=== PATIENT | male | born 1965 | race Caucasian/White ===

== ENCOUNTER → 2016-06-18 | Outpatient (CLI) | payer OTHER | LOC: RAD 07:56 | PROVIDERS: ATTEND Physician Assistant | DX: M79.641 Pain in right hand (principal); M79.642 Pain in left hand; M25.562 Pain in left knee ==

== ENCOUNTER → 2016-07-02 | Outpatient (CLI) | payer OTHER | LOC: RAD 07:55 | PROVIDERS: ATTEND Orthopaedic Surgery | DX: M25.562 Pain in left knee (principal) ==

== ENCOUNTER 2016-11-05 08:16 | Day surgery (SDC) | payer OTHER ==
[2016-10-29 09:21] LABS: ABSOLUTE BASOPHILS # (AUTO) 0.1 10^3/uL (0.0-0.2); ABSOLUTE EOSINOPHILS # (AUTO) 0.2 10^3/uL (0.0-0.6); ABSOLUTE LYMPHOCYTES (AUTO) 1.7 10^3/uL (0.5-4.7); ABSOLUTE MONOCYTES (AUTO) 0.6 10^3/uL (0.1-1.4); ABSOLUTE NEUT (AUTO) 3.1 10^3/uL (1.7-8.2); EOSINOPHILS % (AUTO) 3.9 % (0-6); HEMATOCRIT 40.5 % (37.9-51.0); HEMOGLOBIN 13.6 g/dL (13.5-17.0); HGB HCT DIFFERENCE 0.3; LYMPHOCYTES % (AUTO) 29.9 % (13-45); MEAN CORPUSCULAR HEMOGLOBIN 29.6 pg (27.0-33.4); MEAN CORPUSCULAR HGB CONC 33.6 g/dL (32.0-36.0); MEAN CORPUSCULAR VOLUME 88 fl (80-97); MONOCYTES % (AUTO) 11.1 % (3-13); SEGMENTED NEUTROPHILS % (AUTO) 54.1 % (42-78); WHITE BLOOD COUNT 5.8 10^3/uL (4.0-10.5)
[2016-10-29 09:27] LABS: APPEARANCE,URINE CLEAR; BILIRUBIN,URINE NEGATIVE (NEGATIVE); GLUCOSE, URINE NEGATIVE (NEGATIVE); KETONES,URINE NEGATIVE (NEGATIVE); LEUKOCYTE ESTERASE,URINE NEGATIVE (NEGATIVE); NITRITE,URINE NEGATIVE (NEGATIVE); PROTEIN,URINE NEGATIVE (NEGATIVE); URINE SPECIFIC GRAVITY 1.016; UROBILINOGEN,URINE NEGATIVE mg/dL (<2.0)
[2016-10-29 09:47] LABS: ANION GAP 11 (5-19); BLOOD UREA NITROGEN 18 mg/dL (7-20); CALCIUM 9.3 mg/dL (8.4-10.2); CARBON DIOXIDE 24 mmol/L (22-30); CHLORIDE 107 mmol/L (98-107); GLUCOSE 111 mg/dL (75-110); POTASSIUM 4.7 mmol/L (3.6-5.0); SODIUM 141.8 mmol/L (137-145)
--- NOTE | 2016-10-29 10:01 | RADIOLOGY REPORT (SQ) ---
EXAM DESCRIPTION: CHEST PA/LATERAL COMPLETED DATE/TIME: 10/29/2016 9:52 am REASON FOR STUDY: PRE OP COMPARISON: 2014 EXAM PARAMETERS: NUMBER OF VIEWS: two views TECHNIQUE: Digital Frontal and Lateral radiographic views of the chest acquired. RADIATION DOSE: NA LIMITATIONS: none FINDINGS: LUNGS AND PLEURA: No opacities, masses or pneumothorax. No pleural effusion. MEDIASTINUM AND HILAR STRUCTURES: No masses or contour abnormalities. HEART AND VASCULAR STRUCTURES: Heart normal size. No evidence for failure. BONES: No acute findings. HARDWARE: None in the chest. OTHER: No other significant finding. IMPRESSION: NO SIGNIFICANT RADIOGRAPHIC FINDING IN THE CHEST. TECHNICAL DOCUMENTATION: JOB ID: [id number] [employer]- All Rights Reserved
--- NOTE | 2016-10-29 13:08 | EKG REPORT ---
SEVERITY:- ABNORMAL ECG - SINUS RHYTHM NONSPECIFIC INTRAVENTRICULAR CONDUCTION DELAY NONSPECIFIC ST-T CHANGES- INFERIOR LEADS : Confirmed by: Wilner Flores MD 29-Oct-2016 13:07:18
[~2016-11-05 08:16] MED LIST: CEFAZOLIN 2 GM/D5W RTU 2 GM/50 ML RTUPB IV PRN; LACTATED RINGERS 1000 ML IV PRN; LIDOCAINE 0.5% INJ-PF (5 MG/ML) 50 ML SDV SUBCUT PRN
[2016-11-05] MEDS ORDERED: BUPIVACAINE HCL 0.25% /EPINEPHRINE INJ/PF 30 ML SDV ONE (09:11)
[2016-11-05] MEDS ORDERED: FAMOTIDINE INJ/PF 20 MG/2 ML SDV IV ONE (10:07)
[2016-11-05] MEDS ORDERED: RINGERS SOLUTION,LACTATED 1,000 ML IV PRN (10:14)
[2016-11-05] MEDS ORDERED: MIDAZOLAM 2 MG/2 ML INJ ONE (10:43)
[2016-11-05] MEDS ORDERED: EPHEDRINE SULFATE INJ 50 MG/1 ML AMPULE ONE (10:43)
[2016-11-05] MEDS ORDERED: FENTANYL CITRATE INJ/PF 250 MCG/5 ML AMPULE ONE (10:43)
[2016-11-05] MEDS ORDERED: PROPOFOL INJ 200 MG/20 ML VIAL IV ONE (10:44)
[2016-11-05] MEDS ORDERED: IBUPROFEN INJ 800 MG/8 ML VIAL IV ONE (10:44)
[2016-11-05] MEDS ORDERED: RINGERS SOLUTION,LACTATED 1,000 ML IV ONE (11:00)
[2016-11-05] MEDS ORDERED: MORPHINE SULFATE 10 MG/ML INJ IV PRN (11:36)
[2016-11-05] MEDS ORDERED: FENTANYL CITRATE INJ/PF 100 MCG/2 ML AMPUL IV PRN ×3 (11:36)
[2016-11-05] MEDS ORDERED: MEPERIDINE HCL/PF INJ 25 MG/1 ML DISP.SYRIN IV PRN (11:36)
[2016-11-05] MEDS ORDERED: PROMETHAZINE HCL INJ 25 MG/1 ML VIAL IV PRN ×2 (11:36)
[2016-11-05] MEDS ORDERED: DIPHENHYDRAMINE HCL 50 MG/ML VIAL IV PRN (11:36)
[2016-11-05] MEDS ORDERED: OXYCODONE-ACETAMINOPHEN 5-325 MG TABLET PO PRN ×2 (11:36)
--- NOTE | 2016-11-05 11:58 | Operative Report ---
Operative Report DATE OF SURGERY: 11/05/16 PREOPERATIVE DIAGNOSIS: Left patellar tendinitis OPERATION: Left patellar tendon debridement SURGEON: WALESKA JIMENEZ ANESTHESIA: GA TISSUE REMOVED OR ALTERED: Tissue to pathology, cultures to microbiology ESTIMATED BLOOD LOSS: 25 PROCEDURE: Supine and abdomen table the left lower extremities prepped and draped a sterile fashion. Limb was elevated for exsanguination tourniquet inflated 280 torr. A longitudinal incision was made over the patellar tendon and the tibial tubercle. Blunt dissection was used to elevate the soft tissue off the anterior surface of the patella tendon and its medial and lateral margins are identified. A 10 blade was used to perforate this retinaculum at the margins of the patella tendon. The tissue underneath the patella tendon was then debrided using combination of a knife, blunt dissection, and rongeur. The tissue includes inflammatory tissue, fibrous tissue, and bone. The tendon is palpated and is no further inflammatory tissue that can be appreciated. The tourniquet was deflated. Hemostasis obtained with electrocautery. The wound is irrigated with bulb lavage. Is closed with interrupted Vicryl followed by nylon. A sterile compressive dressing was applied and the patient's return to the PACU in satisfactory condition.
[2016-11-05] MEDS ORDERED: ONDANSETRON 4 MG TAB.RAPDIS SL PRN (12:40)
[2016-11-05] MEDS ORDERED: OXYCODONE HCL IR 5 MG TABLET PO PRN (12:40)
[2016-11-05 14:18] VITALS: BP 110/68
[2016-11-05] MEDS ORDERED: SUCCINYLCHOLINE CHLORIDE INJ 200 MG/10 ML VIAL ONE (14:38)
== END 2016-11-05 14:10 | disposition home or self-care (01) ==
LOC: OROUT 08:16
PROVIDERS: ATTEND Orthopaedic Surgery
PROC: 0LBR0ZZ Excision of Left Knee Tendon, Open Approach (ICD-10-PCS; principal; 2016-11-05 10:30)
DX: M76.52 Patellar tendinitis, left knee (principal); E03.9 Hypothyroidism, unspecified; I10 Essential (primary) hypertension; K21.9 Gastro-esophageal reflux disease without esophagitis; Z79.899 Other long term (current) drug therapy; Z88.8 Allergy status to other drugs, medicaments and biological substances
CPT/HCPCS: 93005; 36415; 87070; 87205; 85025; 87075; 80048; 81001; 88304 ×2; 88311; 71020; 93010; 11043; J2250; J3490 ×2; J3010; J0330; J2704; S0028; J0690; J1741; 1320

== ENCOUNTER 2017-01-06 12:14 | Inpatient (IN) | payer OTHER ==
--- NOTE | 2017-01-06 12:39 | ER Document Report ---
ED Medical Screen (RME) - General Chief Complaint: Chest Pain > 30 Stated Complaint: CHEST PAIN Time Seen by Provider: 01/06/17 12:38 Notes: Patient was referred from his primary care doctor. Patient states for several weeks he has been feeling weak has had a couple fainting episodes and has been having palpitations. He also been having some chest pressure and shortness of breath. He was found to be in atrial fibrillation by his primary doctor this morning. This is a new onset. EKG here shows patient have atrial flutter. Patient states he did have an abnormal stress test in 2013. However a subsequent heart catheterization showed normal coronary arteries. TRAVEL OUTSIDE OF THE [place] IN LAST 30 DAYS: No - Related Data Allergies/Adverse Reactions: lisinopril Adverse Reaction (Verified 01/06/17 12:32) Tachycardia Past Medical History - Past Medical History Cardiac Medical History: Reports: Hx Coronary Artery Disease, Hx Hypertension - no meds Denies: Hx Heart Attack Pulmonary Medical History: Reports: Hx Pneumonia - aspiration 2001 post shoulder sx Denies: Hx Asthma, Hx Bronchitis, Hx COPD Neurological Medical History: Denies: Hx Cerebrovascular Accident, Hx Seizures Renal/ Medical History: Denies: Hx Peritoneal Dialysis GI Medical History: Denies: Hx Hepatitis, Hx Hiatal Hernia, Hx Ulcer Musculoskeltal Medical History: Reports Hx Arthritis Infectious Medical History: Denies: Hx Hepatitis Past Surgical History: Denies: Hx Open Heart Surgery, Hx Pacemaker - Immunizations Hx Diphtheria, Pertussis, Tetanus Vaccination: Yes Physical Exam - Vital signs Vitals: Temp Pulse Resp BP Pulse Ox 97.8 F 88 18 126/85 H 95 01/06/17 12:28 01/06/17 12:28 01/06/17 12:28 01/06/17 12:28 01/06/17 12:28 Course - Vital Signs Vital signs: Temp Pulse Resp BP Pulse Ox 97.8 F 88 18 126/85 H 95 01/06/17 12:28 01/06/17 12:28 01/06/17 12:28 01/06/17 12:28 01/06/17 12:28
[2017-01-06] MEDS ORDERED: DILTIAZEM HCL INJ 25 MG/5 ML VIAL IV ONE (13:09)
--- NOTE | 2017-01-06 13:13 | ER Document Report ---
ED Cardiac - General Chief Complaint: Chest Pain > 30 Stated Complaint: CHEST PAIN Time Seen by Provider: 01/06/17 12:38 TRAVEL OUTSIDE OF THE [place] IN LAST 30 DAYS: No - HPI Notes: 51-year-old male with history of hypothyroidism and hypertension presents by referral from his PCP after being noted to be in new onset atrial flutter today. He has been having problems for greater than a few weeks but really noticed in the last 2 weeks where he has severe exertional dyspnea fatigue and palpitations. He did have a single episode of syncope after getting up at one point. He does have some associated chest pressure. Again most of the symptoms resolve with rest but any exertion at all amplifies them severely. He does have a history as well as hyperlipidemia denies prior cardiac problems with a negative heart catheterization in 2013. Currently is on losartan but no calcium channel blockers or beta blockers. Currently just has minimal amount of palpitations and chest pressure. - Related Data Allergies/Adverse Reactions: lisinopril Adverse Reaction (Verified 01/06/17 12:32) Tachycardia Home Medications: Current Home Medications Cyclobenzaprine HCl [Flexeril 10 mg Tablet] 10 mg PO QHS 01/06/17 [History] Levothyroxine Sodium [Synthroid 0.112 mg Tablet] 112 mcg PO DAILY 01/06/17 [ History] Omeprazole 40 mg PO ACBRKFST 01/06/17 [History] Paroxetine HCl [Paxil] 40 mg PO DAILY 01/06/17 [History] Simvastatin [Zocor 20 mg Tablet] 20 mg PO QHS 01/06/17 [History] Tamsulosin HCl [Flomax 0.4 mg Cap.sr] 0.4 mg PO QHS 01/06/17 [History] Past Medical History - Social History Smoking Status: Former Smoker - Quit in 1996 Chew tobacco use (# tins/day): No Frequency of alcohol use: None Drug Abuse: None Family History: Reviewed & Not Pertinent Patient has suicidal ideation: No Patient has homicidal ideation: No - Past Medical History Cardiac Medical History: Reports: Hx Coronary Artery Disease, Hx Hypertension - no meds Denies: Hx Heart Attack Pulmonary Medical History: Reports: Hx Pneumonia - aspiration 2000 post shoulder sx Denies: Hx Asthma, Hx Bronchitis, Hx COPD Neurological Medical History: Denies: Hx Cerebrovascular Accident, Hx Seizures Renal/ Medical History: Denies: Hx Peritoneal Dialysis GI Medical History: Denies: Hx Hepatitis, Hx Hiatal Hernia, Hx Ulcer Musculoskeltal Medical History: Reports Hx Arthritis Infectious Medical History: Denies: Hx Hepatitis Past Surgical History: Denies: Hx Open Heart Surgery, Hx Pacemaker - Immunizations Hx Diphtheria, Pertussis, Tetanus Vaccination: Yes Review of Systems - Review of Systems -: Yes All other systems reviewed and negative Physical Exam - Vital signs Vitals: Temp Pulse Resp BP Pulse Ox 97.8 F 88 18 126/85 H 95 01/06/17 12:28 01/06/17 12:28 01/06/17 12:28 01/06/17 12:28 01/06/17 12:28 - Notes Notes: Physical Exam: GENERAL: VS as per nursing doc. Well-appearing, well-nourished and in no acute distress. HEAD: Atraumatic, normocephalic. EYES: Pupils equal round and reactive to light, extraocular movements intact, sclera anicteric, no conjunctival injection or discharge. ENT: Nares patent, oropharynx clear without exudates. Moist mucous membranes. NECK: Normal range of motion, supple without lymphadenopathy. No JVD. No Carotid Bruits. LUNGS: Breath sounds clear to auscultation bilaterally and equal. No wheezes rales or rhonchi. HEART: Normal S1S2. Tachycardic and irregularly irregular without murmurs. Equal peripheral pulses. ABDOMEN: Soft, non-tender. No pulsatile mass. EXTREMITIES: Normal range of motion. No calf tenderness. Negative Homans. No edema. NEUROLOGICAL: Cranial nerves grossly intact. Normal speech. Normal sensory and motor exams. No gross cerebellar abnormalities. PSYCH: Normal mood, normal affect. SKIN: Warm, dry, no cyanosis, no splinter hemorrhages. Cap refill < 2 sec. Course - Re-evaluation Re-evalutation: 01/06/17 14:26 Initial call to hospitalist for admission. Awaiting return call. - Vital Signs Vital signs: Temp Pulse Resp BP Pulse Ox 98.5 F 71 19 94/79 L 96 01/08/17 12:02 01/08/17 12:02 01/08/17 12:02 01/08/17 12:02 01/08/17 12:02 - Laboratory Result Diagrams: 01/07/17 07:38 01/08/17 04:03 Laboratory results interpreted by me: 01/06/17 12:53 Creatine Kinase 260 H - EKG Interpretation by Me Rhythm: A.Flutter - Rate 105 with predominant 3-1 AV block with a flutter. Some ST mild flattening laterally Discharge - Discharge Clinical Impression: Atrial flutter with rapid ventricular response Condition: Good Disposition: ADMITTED OBSERVATION Admitting Provider: Dr. Bernabe Unit Admitted: Telemetry
[2017-01-06 13:18] LABS: ABSOLUTE BASOPHILS # (AUTO) 0.1 10^3/uL (0.0-0.2); ABSOLUTE EOSINOPHILS # (AUTO) 0.2 10^3/uL (0.0-0.6); ABSOLUTE MONOCYTES (AUTO) 0.7 10^3/uL (0.1-1.4); ABSOLUTE NEUT (AUTO) 3.9 10^3/uL (1.7-8.2); BASOPHILS % (AUTO) 1.3 % (0-2); EOSINOPHILS % (AUTO) 2.7 % (0-6); HEMATOCRIT 42.3 % (37.9-51.0); HEMOGLOBIN 14.9 g/dL (13.5-17.0); HGB HCT DIFFERENCE 2.4; LYMPHOCYTES % (AUTO) 29.1 % (13-45); MEAN CORPUSCULAR HEMOGLOBIN 30.1 pg (27.0-33.4); MEAN CORPUSCULAR HGB CONC 35.1 g/dL (32.0-36.0); MEAN CORPUSCULAR VOLUME 86 fl (80-97); RED BLOOD COUNT 4.93 10^6/uL (4.35-5.55); RED CELL DISTRIBUTION WIDTH 13.8 % (11.5-14.0); SEGMENTED NEUTROPHILS % (AUTO) 56.9 % (42-78); WHITE BLOOD COUNT 6.8 10^3/uL (4.0-10.5)
[2017-01-06 13:33] LABS: ALANINE AMINOTRANSFERASE 41 U/L (21-72); ALKALINE PHOSPHATASE 88 U/L (38-126); ANION GAP 13 (5-19); ASPARTATE AMINO TRANSFERASE 27 U/L (17-59); BILIRUBIN,DIRECT 0.4 mg/dL (0.0-0.4); BLOOD UREA NITROGEN 16 mg/dL (7-20); CALCIUM 10.1 mg/dL (8.4-10.2); CARBON DIOXIDE 25 mmol/L (22-30); CHLORIDE 105 mmol/L (98-107); CREATINE KINASE 260 U/L (55-170); CREATININE RESULT 1.01 mg/dL (0.52-1.25); GLUCOSE 96 mg/dL (75-110); MAGNESIUM 2.1 mg/dL (1.6-2.3); POTASSIUM 4.4 mmol/L (3.6-5.0); SODIUM 142.7 mmol/L (137-145); TOTAL PROTEIN 8.2 g/dL (6.3-8.2)
[2017-01-06 13:38] LABS: PROTHROMBIN TIME 13.3 SEC (11.4-15.4)
[2017-01-06 13:43] LABS: CREATINE KINASE MB 1.44 ng/mL (<4.55)
--- NOTE | 2017-01-06 13:49 | RADIOLOGY REPORT (SQ) ---
EXAM DESCRIPTION: CHEST SINGLE VIEW COMPLETED DATE/TIME: 01/06/2017 1:37 pm REASON FOR STUDY: Dyspnea COMPARISON: 10/29/2016. EXAM PARAMETERS: NUMBER OF VIEWS: One view. TECHNIQUE: Single frontal radiographic view of the chest acquired. RADIATION DOSE: NA LIMITATIONS: None. FINDINGS: LUNGS AND PLEURA: No opacities, masses or pneumothorax. No pleural effusion. MEDIASTINUM AND HILAR STRUCTURES: No masses. Contour normal. HEART AND VASCULAR STRUCTURES: Heart normal in size. Normal vasculature. BONES: No acute findings. HARDWARE: None in the chest. OTHER: No other significant finding. IMPRESSION: NO ACUTE RADIOGRAPHIC FINDING IN THE CHEST. TECHNICAL DOCUMENTATION: JOB ID: [id number]
[2017-01-06 13:56] LABS: TROPONIN I < 0.012 ng/mL
[2017-01-06] MEDS ORDERED: ASPIRIN 81 MG TABLET, CHEWABLE PO ONE (14:21)
--- NOTE | 2017-01-06 15:01 | RADIOLOGY REPORT (SQ) ---
EXAM DESCRIPTION: CHEST SINGLE VIEW COMPLETED DATE/TIME: 01/06/2017 2:33 pm REASON FOR STUDY: CHEST PAIN COMPARISON: 10/29/2016. EXAM PARAMETERS: NUMBER OF VIEWS: One view. TECHNIQUE: Single frontal radiographic view of the chest acquired. RADIATION DOSE: NA LIMITATIONS: None. FINDINGS: LUNGS AND PLEURA: No opacities, masses or pneumothorax. No pleural effusion. MEDIASTINUM AND HILAR STRUCTURES: No masses. Contour normal. HEART AND VASCULAR STRUCTURES: Heart normal in size. Normal vasculature. BONES: No acute findings. HARDWARE: Hardware in the cervical spine. OTHER: No other significant finding. IMPRESSION: NO ACUTE RADIOGRAPHIC FINDING IN THE CHEST. TECHNICAL DOCUMENTATION: JOB ID: [id number]
[2017-01-06] MEDS ORDERED: ONDANSETRON 4 MG TAB.RAPDIS PO PRN (15:40)
[2017-01-06] MEDS ORDERED: ACETAMINOPHEN 325 MG TABLET PO PRN (15:40)
[2017-01-06] MEDS ORDERED: METOPROLOL TARTRATE 50 MG TABLET PO ONE (15:49)
--- NOTE | 2017-01-06 16:04 | PDOC H&P ---
History of Present Illness Admission Date/PCP: 01/06/17 14:52 REMINGTON ENG PA-C Patient complains of: Heart Palpitations History of Present Illness: WENDY HOPKINS is a 51 year old male presents with complaint of heart palpitation for the last 8 weeks. Pt states that when he exerts himself he feels his heart start to beat fast. Pt states that he has not had any chest pain. Pt states that he has never had this problem before. Past Medical History Cardiac Medical History: Reports: Coronary Artery Disease, Hypertension - no meds Denies: Myocardial Infarction Pulmonary Medical History: Reports: Pneumonia - aspiration 2000 post shoulder sx Denies: Asthma, Bronchitis, Chronic Obstructive Pulmonary Disease (COPD) Neurological Medical History: Denies: Seizures GI Medical History: Denies: Hepatitis, Hiatal Hernia Musculoskeltal Medical History: Reports: Arthritis Hematology: Denies: Anemia, Sickle Cell Disease Past Surgical History Past Surgical History: Reports: Cholecystectomy, Other - Left knee surgery Neck Surgery Rotator Cuff Surgery Denies: Pacemaker Social History Information Source: Patient Lives with: Family Smoking Status: Former Smoker - Quit in 1996 - Advance Directive Resuscitation Status: Full Code Family History Parental Family History Reviewed: Yes Children Family History Reviewed: Yes Sibling(s) Family History Reviewed.: Yes Medication/Allergy Home Medications: Paroxetine HCl [Paxil] 40 mg PO DAILY 01/20/12 Simvastatin [Zocor 10 mg Tablet] 10 mg PO DAILY 01/20/12 Ibuprofen 800 mg PO PRN PRN 10/29/16 Levothyroxine Sodium [Synthroid 0.112 mg Tablet] 112 mcg PO DAILY 10/29/16 Losartan Potassium [Cozaar] 25 mg PO DAILY 10/29/16 Tamsulosin HCl [Flomax] 0.4 mg PO DAILY 10/29/16 Allergies/Adverse Reactions: lisinopril Adverse Reaction (Verified 01/06/17 12:32) Tachycardia Review of Systems Constitutional: ABSENT: chills, fever(s), headache(s), weight gain, weight loss Eyes: ABSENT: visual disturbances Ears: ABSENT: hearing changes Cardiovascular: PRESENT: palpitations. ABSENT: chest pain, dyspnea on exertion , edema, orthropnea Respiratory: ABSENT: cough, hemoptysis Gastrointestinal: ABSENT: abdominal pain, constipation, diarrhea, hematemesis, hematochezia, nausea, vomiting Genitourinary: ABSENT: dysuria, hematuria Musculoskeletal: ABSENT: joint swelling Integumentary: ABSENT: rash, wounds Neurological: ABSENT: abnormal gait, abnormal speech, confusion, dizziness, focal weakness, syncope Psychiatric: ABSENT: anxiety, depression, homidical ideation, suicidal ideation Endocrine: ABSENT: cold intolerance, heat intolerance, polydipsia, polyuria Hematologic/Lymphatic: ABSENT: easy bleeding, easy bruising Physical Exam Vital Signs: Temp Pulse Resp BP Pulse Ox 97.8 F 88 19 114/85 100 01/06/17 12:28 01/06/17 12:28 01/06/17 14:47 01/06/17 14:47 01/06/17 14:47 General appearance: PRESENT: no acute distress, well-developed, well-nourished Head exam: PRESENT: atraumatic, normocephalic Eye exam: PRESENT: conjunctiva pink, EOMI. ABSENT: scleral icterus Ear exam: PRESENT: normal external ear exam Mouth exam: PRESENT: moist, tongue midline Neck exam: ABSENT: carotid bruit, JVD, lymphadenopathy, thyromegaly Respiratory exam: PRESENT: clear to auscultation herminio. ABSENT: rales, rhonchi, wheezes Cardiovascular exam: PRESENT: irregular rhythm, tachycardia, other - no lower ext edema Pulses: PRESENT: normal dorsalis pedis pul Vascular exam: PRESENT: normal capillary refill GI/Abdominal exam: PRESENT: normal bowel sounds, soft. ABSENT: distended, guarding, mass, organolmegaly, rebound, tenderness Rectal exam: PRESENT: deferred Extremities exam: PRESENT: full ROM. ABSENT: calf tenderness, clubbing, pedal edema Neurological exam: PRESENT: alert, awake, oriented to person, oriented to place , oriented to time, oriented to situation, CN II-XII grossly intact. ABSENT: motor sensory deficit Psychiatric exam: PRESENT: appropriate affect, normal mood. ABSENT: homicidal ideation, suicidal ideation Skin exam: PRESENT: dry, intact, warm. ABSENT: cyanosis, rash Results Impressions: Chest X-Ray 01/06/17 13:08 IMPRESSION: NO ACUTE RADIOGRAPHIC FINDING IN THE CHEST. Assessment & Plan - Diagnosis (1) Atrial flutter with rapid ventricular response Is this a current diagnosis for this admission?: Yes Plan: Will place pt on Metoprolol 50 mg PO BID with parameters. Pt was given Cardiazem in Er. Will place pt on Lovenox weight based. Will order 2 D Echo and trend troponins. Will consult Cardiology. Will check TSH and Free T4. Will also check A1C and Lipid Profile. (2) Hypothyroidism Is this a current diagnosis for this admission?: Yes Plan: Will check labs and continue home medications (3) Hyperlipidemia Qualifiers: Hyperlipidemia type: unspecified Qualified Code(s): E78.5 - Hyperlipidemia , unspecified Is this a current diagnosis for this admission?: Yes Plan: Statin. Will check lipid profile. (4) Obesity (BMI 30-39.9) Is this a current diagnosis for this admission?: Yes Plan: discussed dietary changes. (5) DVT prophylaxis Is this a current diagnosis for this admission?: Yes Plan: Lovenox. - Time Time Spent: 30 to 50 Minutes Anticipated discharge: Home
--- NOTE | 2017-01-06 18:27 | EKG REPORT ---
SEVERITY:- ABNORMAL ECG - A-FLUTTER W/ PREDOM 3:1 AV BLOCK, A-RATE 294 NONSPECIFIC IVCD WITH LAD : Confirmed by: Wilner Flores MD 06-Jan-2017 18:27:05
--- NOTE | 2017-01-06 19:56 | PDOC CONSULTATION ---
Consultation Consult Date: 01/06/17 Attending physician:: JOEL LYONS Consult reason:: Atrial flutter fibrillation History of Present Illness Admission Date/PCP: 01/06/17 15:40 REMINGTON ENG PA-C Patient complains of: Palpitations History of Present Illness: WENDY HOPKINS is a 51 year old male presents with complaint of heart palpitation for the last 8 weeks. Pt states that when he exerts himself he feels his heart start to beat fast. Pt states that he has not had any chest pain. Pt states that he has never had this problem before. Patient has noted shortness of breath on [id number] exertion. Patient does describe history of hypertension but denied any other significant problems. Patient does give history of of congestive heart failure in the family. Patient does have history of loud snoring, daytime fatigue and sleepiness. Past Medical History Cardiac Medical History: Reports: Coronary Artery Disease, Hypertension - no meds Denies: Myocardial Infarction Pulmonary Medical History: Reports: Pneumonia - aspiration 2000 post shoulder sx Denies: Asthma, Bronchitis, Chronic Obstructive Pulmonary Disease (COPD) Neurological Medical History: Denies: Seizures GI Medical History: Denies: Hepatitis, Hiatal Hernia Musculoskeltal Medical History: Reports: Arthritis Hematology: Denies: Anemia, Sickle Cell Disease Past Surgical History Past Surgical History: Reports: Cholecystectomy, Other - Left knee surgery Neck Surgery Rotator Cuff Surgery Denies: Pacemaker Social History Information Source: Patient Lives with: Family Smoking Status: Former Smoker Number of Years Smokin Last Time Smoked: 1996 Frequency of Alcohol Use: None Drugs: None Hx Prescription Drug Abuse: No - Advance Directive Resuscitation Status: Full Code Family History Family History: Hypertension, Other - Congestive heart failure Parental Family History Reviewed: Yes Children Family History Reviewed: Yes Sibling(s) Family History Reviewed.: Yes Medication/Allergy Home Medications: Cyclobenzaprine HCl [Flexeril 10 mg Tablet] 10 mg PO QHS 01/06/17 Ibuprofen [Motrin 800 mg Tablet] 800 mg PO Q12HP PRN 01/06/17 Levothyroxine Sodium [Synthroid 0.112 mg Tablet] 112 mcg PO DAILY 01/06/17 Losartan Potassium [Cozaar 100 mg Tablet] 100 mg PO DAILY 01/06/17 Omeprazole 40 mg PO ACBRKFST 01/06/17 Paroxetine HCl [Paxil] 40 mg PO DAILY 01/06/17 Ranitidine HCl [Zantac 150 mg Tablet] 150 mg PO Q12 01/06/17 Simvastatin [Zocor 20 mg Tablet] 20 mg PO QHS 01/06/17 Tamsulosin HCl [Flomax 0.4 mg Cap.sr] 0.4 mg PO QHS 01/06/17 Allergies/Adverse Reactions: lisinopril Adverse Reaction (Verified 01/06/17 12:32) Tachycardia Physical Exam Vital Signs: Temp Pulse Resp BP Pulse Ox 97.6 F 111 H 16 122/71 96 01/06/17 16:41 01/06/17 17:01 01/06/17 16:41 01/06/17 16:41 01/06/17 16:41 Intake & Output 01/05/17 01/06/17 01/07/17 06:59 06:59 06:59 Intake Total 150 Balance 150 Exam: GENERAL: well-nourished and in no acute distress. Alert and oriented x3 HEAD: Atraumatic, normocephalic. EYES: Pupils equal round and reactive to light, extraocular movements intact, sclera anicteric, conjunctiva are normal. ENT: TMs normal, nares patent, oropharynx clear without exudates. Moist mucous membranes. No oral ulcerations or bleeding gums noted NECK: supple without lymphadenopathy. Trachea is central. No cervical or axillary lymphadenopathy noted. Carotids are 2+, JVD WNL LUNGS: Respiration seems nonlabored, no significant accessory muscle action noted. Breath sounds clear to auscultation bilaterally and equal noted. No wheezes rales or rhonchi noted. No significant dullness noted on percussion. CHEST: Palpation of the chest wall shows no significant chest wall tenderness. No other significant abnormalities noted. HEART: Thelma HAT BRIM CURLER, No PSH, 1/6 NIELS aortic area, 1/6 tucker systolic murmur mitral area, no rubs, no gallops. ABDOMEN: Soft, no significant tenderness appreciated, normoactive bowel sounds. No guarding, no rebound. No rigidity noted . No masses appreciated. EXTREMITIES: Pedal pulses are 1-2+, no calf tenderness noted. No clubbing or cyanosis.trace to 1+ pedal edema noted NEUROLOGICAL: Focused neurological exam showed no significant neurologic deficit. Normal speech, no focal weakness appreciated. PSYCH: Normal mood, normal affect. Judgment and insight within normal limits. SKIN: No significant ecchymosis, rash, ulcerations or signs of pruritus noted. MUSCULOSKELETAL EXAM: No significant joint swelling noted. Results EKG Comments: Atrial fibrillation flutter without any acute ST-T wave changes heart rate slightly increased Impressions: Chest X-Ray 01/06/17 13:08 IMPRESSION: NO ACUTE RADIOGRAPHIC FINDING IN THE CHEST. Status: Image reviewed by me - Normal cardiac silhouette, no acute CHF by chest x-ray Assessment & Plan - Diagnosis (1) Atrial flutter with rapid ventricular response Is this a current diagnosis for this admission?: Yes (2) Hypertension Qualifiers: Hypertension type: essential hypertension Qualified Code(s): I10 - Essential (primary) hypertension Is this a current diagnosis for this admission?: Yes (3) Sleep disorder Is this a current diagnosis for this admission?: Yes (4) Hyperlipidemia Qualifiers: Hyperlipidemia type: unspecified Qualified Code(s): E78.5 - Hyperlipidemia , unspecified Is this a current diagnosis for this admission?: Yes (5) Hypothyroidism Qualifiers: Hypothyroidism type: unspecified Qualified Code(s): E03.9 - Hypothyroidism , unspecified Is this a current diagnosis for this admission?: Yes (6) Obesity (BMI 30-39.9) Is this a current diagnosis for this admission?: Yes - Notes Notes: Atrial flutter fibrillation with RVR: Patient noted to have atypical fine flutter. Will obtain a 2D echocardiogram to look for any structural cardiac abnormalities. Agree with beta-reece use for rate control. Will start patient on Ranexa and multaq, this combination has a good effect on chemical cardioversion. So far chads score is 1. Therefore borderline candidate for chronic anticoagulation. Hypertension: Reasonably well controlled. Blood pressure goal in this patient is 135/85 or less. This was discussed with the patient. Currently blood pressure under reasonable control. Better medication for this patient are JANES inhibitor/ARB/beta reece etc. discussed side effects of uncontrolled hypertension and also severe hypotension. Sleep disorder breathing: Based on patient's symptoms, oropharyngeal exam, body habitus, comorbid diagnosis etc., there is high probability of underlying sleep apnea syndrome. Evaluation is recommended for sleep apnea as treatment of this condition if found is likely to benefit patient and reduce patient's future cardiovascular risk. Hyperlipidemia: LDL goal is less than 70. Recommend statin therapy at least intermediate or high dose, of high potency status. Periodic lipid panel and liver panel is indicated. Patient to report any significant muscle discomfort or other side effects. Hypothyroidism : Continue with replacement therapy. Obesity: Discussed adverse effect of overweight/obesity on cardiovascular event rate, sleep apnea, diabetes and hypertension et cetera. Discussed a direct association of obesity hypertension and sleep apnea with sleep apnea atrial flutter fibrillation. - Time Time Spent: 30 to 50 Minutes - CODE STATUS was discussed, patient remains full code. Surrogate decision-maker patient's . Multiple medical problems were addressed. More than 50% of the time spent coordinating care, discussing management plans with involved caregivers. Management plans discussed with involved personnels. Medical decision making was of moderate to high complexity , patient's has multiple comorbidities. Medications reviewed and adjusted accordingly: Yes
[2017-01-06] MEDS: ENOXAPARIN SODIUM INJ 120 MG/0.8 ML DISP.SYRIN SUBCUT SCH (21:54)
[2017-01-06] MEDS: RANOLAZINE 500 MG TAB.SR.12H PO SCH (21:55)
[2017-01-06] MEDS: METOPROLOL TARTRATE 50 MG TABLET PO SCH (21:56)
[2017-01-06] MEDS: DRONEDARONE HYDROCHLORIDE 400 MG TABLET PO SCH (21:56)
[2017-01-07] MEDS: LANSOPRAZOLE 15 MG TAB.RAP.DR PO SCH (06:01)
[2017-01-07 08:03] LABS: HEMATOCRIT 39.9 % (37.9-51.0); HEMOGLOBIN 14.2 g/dL (13.5-17.0); HGB HCT DIFFERENCE 2.7; MEAN CORPUSCULAR HEMOGLOBIN 30.3 pg (27.0-33.4); MEAN CORPUSCULAR HGB CONC 35.5 g/dL (32.0-36.0); MEAN CORPUSCULAR VOLUME 85 fl (80-97); RED BLOOD COUNT 4.68 10^6/uL (4.35-5.55); RED CELL DISTRIBUTION WIDTH 13.9 % (11.5-14.0); WHITE BLOOD COUNT 6.4 10^3/uL (4.0-10.5)
[2017-01-07 08:18] LABS: CHOLESTEROL 177.91 mg/dL (0-200); CREATINE KINASE 217 U/L (55-170); Direct HDL 38 mg/dL (>40); TRIGLYCERIDES 171 mg/dL (<150)
[2017-01-07 08:29] LABS: DIRECT LDL 112 mg/dL (<100)
[2017-01-07 08:32] LABS: VLDL CHOLESTEROL 34.2 mg/dL (10-31)
[2017-01-07 08:49] LABS: THYROID STIMULATING HORMONE 3.86 uIU/mL (0.47-4.68)
[2017-01-07] MEDS: DRONEDARONE HYDROCHLORIDE 400 MG TABLET PO SCH (09:35)
[2017-01-07] MEDS: ENOXAPARIN SODIUM INJ 120 MG/0.8 ML DISP.SYRIN SUBCUT SCH (09:35)
[2017-01-07] MEDS: METOPROLOL TARTRATE 50 MG TABLET PO SCH ×2 (09:35→23:59)
[2017-01-07] MEDS: RANOLAZINE 500 MG TAB.SR.12H PO SCH (09:35)
--- NOTE | 2017-01-07 12:30 | PDOC PROGRESS REPORT ---
Subjective Progress Note for:: 01/07/17 Subjective:: Pt states that he is feeling better. Pt states that Dr. Stearns saw him earlier this morning. Pt states that he is to be transferred to [facility] tomorrow for possible ablation. Physical Exam Vital Signs: Temp Pulse Resp BP Pulse Ox 97.6 F 93 20 114/72 95 01/07/17 07:45 01/07/17 09:34 01/07/17 07:45 01/07/17 09:34 01/07/17 09:34 Intake & Output 01/06/17 01/07/17 01/08/17 06:59 06:59 06:59 Intake Total 372 Balance 372 Weight 118 kg General appearance: PRESENT: no acute distress, well-developed, well-nourished Head exam: PRESENT: atraumatic, normocephalic Eye exam: PRESENT: conjunctiva pink, EOMI. ABSENT: scleral icterus Ear exam: PRESENT: normal external ear exam Mouth exam: PRESENT: moist, tongue midline Neck exam: PRESENT: carotid bruit Respiratory exam: PRESENT: clear to auscultation hreminio. ABSENT: rales, rhonchi, wheezes Cardiovascular exam: PRESENT: irregular rhythm Pulses: PRESENT: normal dorsalis pedis pul Vascular exam: PRESENT: normal capillary refill GI/Abdominal exam: PRESENT: ascites Rectal exam: PRESENT: deferred Extremities exam: PRESENT: full ROM. ABSENT: calf tenderness, clubbing, pedal edema Neurological exam: PRESENT: alert, awake, oriented to person, oriented to place , oriented to time, oriented to situation, CN II-XII grossly intact. ABSENT: motor sensory deficit Psychiatric exam: PRESENT: appropriate affect, normal mood. ABSENT: homicidal ideation, suicidal ideation Skin exam: PRESENT: dry, intact, warm. ABSENT: cyanosis, rash Results Laboratory Results: 01/07/17 07:38 01/07/17 01/07/17 01/07/17 07:38 07:38 07:38 WBC 6.4 RBC 4.68 Hgb 14.2 Hct 39.9 MCV 85 MCH 30.3 MCHC 35.5 RDW 13.9 Plt Count 215 Triglycerides 171 H Cholesterol 177.91 LDL Cholesterol Direct 112 H VLDL Cholesterol 34.2 H HDL Cholesterol 38 L TSH 3.86 Free T4 1.01 01/06/17 01/06/17 01/07/17 19:50 19:50 01:30 Creatine Kinase 229 H 215 H Troponin I < 0.012 01/07/17 01/07/17 01/07/17 01:30 07:38 07:38 Creatine Kinase 217 H Troponin I < 0.012 < 0.012 Impressions: Chest X-Ray 01/06/17 13:08 IMPRESSION: NO ACUTE RADIOGRAPHIC FINDING IN THE CHEST. Assessment & Plan - Diagnosis (1) Atrial flutter with rapid ventricular response Is this a current diagnosis for this admission?: Yes Plan: Pt currently on Metoprolol and Multaq. Pt currently on Lovenox 1mg/Kg Q12. Pt' s CHADS2 score 1. Awaiting final documentation from Dr. Stearns. (2) Hypothyroidism Qualifiers: Hypothyroidism type: unspecified Qualified Code(s): E03.9 - Hypothyroidism , unspecified Is this a current diagnosis for this admission?: Yes Plan: Synthroid (3) Hyperlipidemia Qualifiers: Hyperlipidemia type: unspecified Qualified Code(s): E78.5 - Hyperlipidemia , unspecified Is this a current diagnosis for this admission?: Yes Plan: Statin (4) Obesity (BMI 30-39.9) Is this a current diagnosis for this admission?: Yes Plan: Encourage Dietary changes. (5) DVT prophylaxis Is this a current diagnosis for this admission?: Yes Plan: Lovenox.
--- NOTE | 2017-01-07 14:00 | EKG REPORT ---
SEVERITY:- ABNORMAL ECG - ATRIAL FLUTTER, A-RATE 272 : Confirmed by: Wilner Flores MD 07-Jan-2017 13:59:55
--- NOTE | 2017-01-07 19:24 | XCELERA REPORT ---
[address] [address] Transthoracic Echocardiogram Report Name: WENDY HOPKINS Age: 51 yrs Gender: Male : 1965 Patient Status: Inpatient Patient Location: [address] [place] [address] Study Date: 01/07/2017 01:45 PM Height: 72 in Weight: 265 lb BSA: 2.4 m2 Procedure: A complete two-dimensional transthoracic echocardiogram was performed (2D, M-mode, spectral and color flow Doppler). The study was technically difficult with many images being suboptimal in quality. Reason For Study: Atrial Flutter Ordering Physician: JOEL LYONS Performed By: Jaz Bangura Interpretation Summary Left ventricular systolic function is borderline reduced. There is mild concentric left ventricular hypertrophy. The left ventricle is grossly normal size. Not all wall segments were well visualized. Regional wall motion abnormalities cannot be excluded due to limited visualization. The right ventricular systolic function is borderline reduced. The right atrium is mildly dilated. The left atrium is mildly dilated. There is a mild amount of mitral regurgitation There is no mitral valve stenosis. There is a trace amount of aortic regurgitation There is no aortic valve stenosis There is a mild amount of tricuspid regurgitation Right ventricular systolic pressure is at the upper limits of normal The aortic root is not well visualized. The inferior vena cava was not well visualized There is no pericardial effusion. MMode/2D Measurements & Calculations RVDd: 3.9 cm LVIDd: 6.1 cm FS: 28.7 % Ao root diam: 3.1 cm IVSd: 1.2 cm LVIDs: 4.4 cm EDV(Teich): 189.1 ml LVPWd: 1.2 cm ESV(Teich): 86.4 ml Ao root area: 7.3 cm2 EF(Teich): 54.3 % LA dimension: 4.5 cm Doppler Measurements & Calculations MV E max kassy: MV P1/2t max kassy: Ao V2 max: LV V1 max P.4 cm/sec 84.9 cm/sec 94.1 cm/sec 1.8 mmHg MV P1/2t: 56.3 msec Ao max PG: LV V1 max: 3.5 mmHg 66.6 cm/sec MVA(P1/2t): 3.9 cm2 MV dec slope: 441.3 cm/sec2 PA V2 max: TR max kassy: 60.2 cm/sec 207.5 cm/sec PA max PG: TR max P.2 mmHg 1.5 mmHg Left Ventricle The left ventricle is grossly normal size. There is mild concentric left ventricular hypertrophy. Left ventricular systolic function is borderline reduced. LV diastolic function could not be adequately assessed due to atrial fibrilation. Not all wall segments were well visualized. Regional wall motion abnormalities cannot be excluded due to limited visualization. Right Ventricle The right ventricle is mildly dilated. There is normal right ventricular wall thickness. The right ventricular systolic function is borderline reduced. Atria The right atrium is mildly dilated. The left atrium is mildly dilated. Interarterial septum not well visualized and not well dopplered. Cannot comment on ASD/PFO presence. Mitral Valve The mitral valve leaflets are sclerotic, but show no functional abnormalities. There is no mitral valve stenosis. There is a mild amount of mitral regurgitation. Aortic Valve The aortic valve is grossly normal. There is no aortic valve stenosis. There is a trace amount of aortic regurgitation. Tricuspid Valve The tricuspid valve is not well visualized, but is grossly normal. There is no tricuspid stenosis. There is a mild amount of tricuspid regurgitation. Right ventricular systolic pressure is at the upper limits of normal. Pulmonic Valve The pulmonic valve is not well visualized. Great Vessels The aortic root is not well visualized. The inferior vena cava was not well visualized. Effusions There is no pericardial effusion. : JOEL LYONS Shyamal
[2017-01-07] MEDS ORDERED: SIMVASTATIN 10 MG TABLET PO SCH (22:00)
[2017-01-07] MEDS ORDERED: TAMSULOSIN HCL 0.4 MG CAP.SR.24H PO SCH (22:00)
--- NOTE | 2017-01-07 22:04 | RADIOLOGY REPORT (SQ) ---
EXAM DESCRIPTION: CTA CHEST COMPLETED DATE/TIME: 01/07/2017 9:54 pm REASON FOR STUDY: Dyspnea RV enlargement, rule out pulmonary embolism COMPARISON: Chest radiograph TECHNIQUE: CT scan of the chest performed using helical scanning technique with dynamic intravenous contrast injection. Images reviewed with lung, soft tissue and bone windows. Reconstructed coronal and sagittal MPR images reviewed. Additional 3 dimensional post-processing performed to develop Maximal Intensity Projection images (PA P). All images stored on PACS. All CT scanners at this facility use dose modulation, iterative reconstruction, and/or weight based d osing when appropriate to reduce radiation dose to as low as reasonably achievable (ALARA). [facility]: Dose Right [facility]: CareDose [facility]: Dose Right [facility]: Teradose 4D [facility]: Gridstore CONTRAST TYPE AND DOSE: contrast/concentration: Isovue 370.00 mg/ml; Total Contrast Delivered: 100.0 ml; Total Saline Delivered: 51.1 ml Contrast bolus optimized for the pulmonary arteries. Not diagnostic for the aorta. RENAL FUNCTION: GFR > 60. RADIATION DOSE: Up-to-date CT equipment and radiation dose reduction techniques were employed. CTDIv ol: 19.8 - 31.1 mGy. DLP: 980 mGy-cm. . LIMITATIONS: None. FINDINGS: LUNGS AND PLEURA: No masses, infiltrates, pneumothorax. No pleural effusions, calcificati ons. AORTA AND GREAT VESSELS: No aneurysm. Contrast bolus not optimized for the aorta. HEART: No pericardial effusion. No significant coronary artery calcifications. PULMONARY ARTERIES: No emboli visualized in the main pulmonary arteries or the segmental branches. HILAR AND MEDIASTINAL STRUCTURES: No identified masses or abnormal nodes. HARDWARE: None in the chest. UPPER ABDOMEN: No significant findings. Limited exam. THYROID AND OTHER SOFT TISSUES: No masses. No adenopathy. BONES: No acute or significant finding. 3D MIPS: Confirm above findings. OTHER: No other significant finding. IMPRESSION: NORMAL CTA OF THE CHEST. NO PULMONARY EMBOLI. COMMENT: Quality ID # [id number]: Final reports with documentation of one or more dose reduction techniques (e.g., Automated exposure control, adjustment of the mA and/or kV according to patient size, use of iterative reconstruction technique) TECHNICAL DOCUMENTATION: JOB ID: [id number] [employer]- All Rights Reserved
[2017-01-08] MEDS: ENOXAPARIN SODIUM INJ 120 MG/0.8 ML DISP.SYRIN SUBCUT SCH ×2 (00:01→10:21)
[2017-01-08] MEDS: DRONEDARONE HYDROCHLORIDE 400 MG TABLET PO SCH ×2 (00:01→10:23)
[2017-01-08 05:12] LABS: ANION GAP 13 (5-19); BLOOD UREA NITROGEN 22 mg/dL (7-20); CALCIUM 9.7 mg/dL (8.4-10.2); CARBON DIOXIDE 24 mmol/L (22-30); CHLORIDE 105 mmol/L (98-107); CREATININE RESULT 1.31 mg/dL (0.52-1.25); GLUCOSE 93 mg/dL (75-110); POTASSIUM 4.2 mmol/L (3.6-5.0); SODIUM 141.5 mmol/L (137-145)
[2017-01-08] MEDS: LANSOPRAZOLE 15 MG TAB.RAP.DR PO SCH (05:19)
--- NOTE | 2017-01-08 07:22 | EKG REPORT ---
SEVERITY:- ABNORMAL ECG - A-FLUTTER W/ PREDOM 4:1 AV BLOCK, A-RATE 263 BORDERLINE LEFT AXIS DEVIATION BORDERLINE T ABNORMALITIES, INFERIOR LEADS : Confirmed by: Wilner Flores MD 08-Jan-2017 07:21:38
[2017-01-08] MEDS ORDERED: NORMAL SALINE 1000 ML 1,000 ML IV PRN (07:58)
[2017-01-08] MEDS ORDERED: LANSOPRAZOLE 30 MG TAB.RAP.DR PO SCH (08:00)
--- NOTE | 2017-01-08 09:50 | PDOC PROGRESS REPORT ---
Subjective Progress Note for:: 01/07/17 Subjective:: Patient seems to be doing better with gradual improvement. Pt is denying any chest arm or neck discomfort. Patient denying any PND, orthopnea. Patient denied any sustained palpitations, dizziness, syncope, near syncope. Patient denying any fever chills. Patient denying any other significant discomfort. Patient is maintaining atrial flutter which this morning seems typical. Review of systems: Rest review of systems negative. Medications: Medications have been reviewed. Physical Exam Vital Signs: Temp Pulse Resp BP Pulse Ox 98.1 F 57 L 20 107/71 93 01/07/17 15:48 01/07/17 15:48 01/07/17 15:48 01/07/17 15:48 01/07/17 15:48 Intake & Output 01/06/17 01/07/17 01/08/17 06:59 06:59 06:59 Intake Total 372 250 Balance 372 250 Weight 118 kg Exam: GENERAL: well-nourished and in no acute distress. Alert and oriented x3 HEAD: Atraumatic, normocephalic. EYES: Pupils equal round and reactive to light, extraocular movements intact, sclera anicteric, conjunctiva are normal. ENT: TMs normal, nares patent, oropharynx clear without exudates. Moist mucous membranes. No oral ulcerations or bleeding gums noted NECK: supple without lymphadenopathy. Trachea is central. No cervical or axillary lymphadenopathy noted. Carotids are 2+, JVD WNL LUNGS: Respiration seems nonlabored, no significant accessory muscle action noted. Breath sounds clear to auscultation bilaterally and equal noted. No wheezes rales or rhonchi noted. No significant dullness noted on percussion. CHEST: Palpation of the chest wall shows no significant chest wall tenderness. No other significant abnormalities noted. 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 ABDOMEN: Soft, no significant tenderness appreciated, normoactive bowel sounds. No guarding, no rebound. No rigidity noted . No masses appreciated. EXTREMITIES: Pedal pulses are 1-2+, no calf tenderness noted. No clubbing or cyanosis.trace to 1+ pedal edema noted NEUROLOGICAL: Focused neurological exam showed no significant neurologic deficit. Normal speech, no focal weakness appreciated. PSYCH: Normal mood, normal affect. Judgment and insight within normal limits. SKIN: No significant ecchymosis, rash, ulcerations or signs of pruritus noted. MUSCULOSKELETAL EXAM: No significant joint swelling noted. Results Laboratory Results: 01/07/17 07:38 01/07/17 01/07/17 01/07/17 07:38 07:38 07:38 WBC 6.4 RBC 4.68 Hgb 14.2 Hct 39.9 MCV 85 MCH 30.3 MCHC 35.5 RDW 13.9 Plt Count 215 Triglycerides 171 H Cholesterol 177.91 LDL Cholesterol Direct 112 H VLDL Cholesterol 34.2 H HDL Cholesterol 38 L TSH 3.86 Free T4 1.01 01/06/17 01/06/17 01/07/17 19:50 19:50 01:30 Creatine Kinase 229 H 215 H Troponin I < 0.012 01/07/17 01/07/17 01/07/17 01:30 07:38 07:38 Creatine Kinase 217 H Troponin I < 0.012 < 0.012 Impressions: Chest X-Ray 01/06/17 13:08 IMPRESSION: NO ACUTE RADIOGRAPHIC FINDING IN THE CHEST. Assessment & Plan - Diagnosis (1) Atrial flutter with rapid ventricular response Is this a current diagnosis for this admission?: Yes (2) Hypertension Qualifiers: Hypertension type: essential hypertension Qualified Code(s): I10 - Essential (primary) hypertension Is this a current diagnosis for this admission?: Yes (3) Sleep disorder Is this a current diagnosis for this admission?: Yes (4) Hyperlipidemia Qualifiers: Hyperlipidemia type: unspecified Qualified Code(s): E78.5 - Hyperlipidemia , unspecified Is this a current diagnosis for this admission?: Yes (5) Hypothyroidism Qualifiers: Hypothyroidism type: unspecified Qualified Code(s): E03.9 - Hypothyroidism , unspecified Is this a current diagnosis for this admission?: Yes (6) Obesity (BMI 30-39.9) Is this a current diagnosis for this admission?: Yes - Notes Notes: Atrial flutter with RVR: Patient noted to have typical flutter. 2D echo results discussed. Shows normal LVEF, RV seems borderline enlarged. No significant valvular abnormalities noted. Agree with beta-reece use for rate control. Continue patient on Ranexa and multaq, this combination has a good effect on chemical cardioversion. So far chads score is 1. Therefore borderline candidate for chronic anticoagulation. Briefly discussed EKG with Dr. Anthony Bradshaw's nurse, she is going to show Dr. Anthony Bradshaw the EKG and if applicable, will arrange for transfer. Hypertension: Reasonably well controlled. Blood pressure goal in this patient is 135/85 or less. This was discussed with the patient. Currently blood pressure under reasonable control. Better medication for this patient are JANES inhibitor/ARB/beta reece etc. discussed side effects of uncontrolled hypertension and also severe hypotension. Sleep disorder breathing: Based on patient's symptoms, oropharyngeal exam, body habitus, comorbid diagnosis etc., there is high probability of underlying sleep apnea syndrome. Evaluation is recommended for sleep apnea as treatment of this condition if found is likely to benefit patient and reduce patient's future cardiovascular risk. Hyperlipidemia: LDL goal is less than 70. Recommend statin therapy at least intermediate or high dose, of high potency status. Periodic lipid panel and liver panel is indicated. Patient to report any significant muscle discomfort or other side effects. Hypothyroidism : Continue with replacement therapy. Obesity: Discussed adverse effect of overweight/obesity on cardiovascular event rate, sleep apnea, diabetes and hypertension et cetera. Discussed a direct association of obesity hypertension and sleep apnea with sleep apnea atrial flutter fibrillation. - Time Time with patient: 15-25 minutes - CODE STATUS was discussed, patient remains full code. Surrogate decision-maker unchanged. Multiple medical problems were addressed. More than 50% of the time spent coordinating care, discussing management plans with involved caregivers. Management plans discussed with involved personnels. Medical decision making was of moderate to high complexity , patient's has multiple comorbidities. Medications reviewed and adjusted accordingly: Yes
--- NOTE | 2017-01-08 09:53 | PDOC PROGRESS REPORT ---
Subjective Progress Note for:: 01/08/17 Subjective:: Patient seems to be doing better with gradual improvement. Pt is denying any chest arm or neck discomfort. Patient denying any PND, orthopnea. Patient denied any sustained palpitations, dizziness, syncope, near syncope. Patient denying any fever chills. Patient denying any other significant discomfort. Patient is maintaining atrial flutter which this morning seems typical. EKGs from this morning reviewed. Patient did have a CTA of the chest performed to rule out pulmonary embolism in view of history of mild pedal edema and finding of borderline enlargement of the right ventricle on the echocardiogram. CTA was negative for pulmonary embolism. This information related to Dr. Anthony Bradshaw along with EKGs. He is going to arrange for transfer. Review of systems: Rest review of systems negative. Medications: Medications have been reviewed. Physical Exam Vital Signs: Temp Pulse Resp BP Pulse Ox 97.6 F 53 L 20 99/67 L 98 01/08/17 07:44 01/08/17 07:44 01/08/17 07:44 01/08/17 07:44 01/08/17 07:44 Intake & Output 01/07/17 01/08/17 01/09/17 06:59 06:59 06:59 Intake Total 372 980 Balance 372 980 Weight 118 kg 116.8 kg Exam: GENERAL: well-nourished and in no acute distress. Alert and oriented x3 HEAD: Atraumatic, normocephalic. EYES: Pupils equal round and reactive to light, extraocular movements intact, sclera anicteric, conjunctiva are normal. ENT: TMs normal, nares patent, oropharynx clear without exudates. Moist mucous membranes. No oral ulcerations or bleeding gums noted NECK: supple without lymphadenopathy. Trachea is central. No cervical or axillary lymphadenopathy noted. Carotids are 2+, JVD WNL LUNGS: Respiration seems nonlabored, no significant accessory muscle action noted. Breath sounds clear to auscultation bilaterally and equal noted. No wheezes rales or rhonchi noted. No significant dullness noted on percussion. CHEST: Palpation of the chest wall shows no significant chest wall tenderness. No other significant abnormalities noted. 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 ABDOMEN: Soft, no significant tenderness appreciated, normoactive bowel sounds. No guarding, no rebound. No rigidity noted . No masses appreciated. EXTREMITIES: Pedal pulses are 1-2+, no calf tenderness noted. No clubbing or cyanosis.trace to 1+ pedal edema noted NEUROLOGICAL: Focused neurological exam showed no significant neurologic deficit. Normal speech, no focal weakness appreciated. PSYCH: Normal mood, normal affect. Judgment and insight within normal limits. SKIN: No significant ecchymosis, rash, ulcerations or signs of pruritus noted. MUSCULOSKELETAL EXAM: No significant joint swelling noted. Results Laboratory Results: 01/07/17 07:38 01/08/17 04:03 01/08/17 04:03 Sodium 141.5 Potassium 4.2 Chloride 105 Carbon Dioxide 24 Anion Gap 13 BUN 22 H Creatinine 1.31 H Est GFR ( Amer) > 60 Est GFR (Non-Af Amer) 58 L Glucose 93 Calcium 9.7 01/06/17 01/06/17 01/07/17 19:50 19:50 01:30 Creatine Kinase 229 H 215 H Troponin I < 0.012 01/07/17 01/07/17 01/07/17 01:30 07:38 07:38 Creatine Kinase 217 H Troponin I < 0.012 < 0.012 Impressions: Chest X-Ray 01/06/17 13:08 IMPRESSION: NO ACUTE RADIOGRAPHIC FINDING IN THE CHEST. Chest/Abdomen CTA 01/07/17 19:44 IMPRESSION: NORMAL CTA OF THE CHEST. NO PULMONARY EMBOLI. Assessment & Plan - Diagnosis (1) Atrial flutter with rapid ventricular response Is this a current diagnosis for this admission?: Yes (2) Hypertension Qualifiers: Hypertension type: essential hypertension Qualified Code(s): I10 - Essential (primary) hypertension Is this a current diagnosis for this admission?: Yes (3) Sleep disorder Is this a current diagnosis for this admission?: Yes (4) Hyperlipidemia Qualifiers: Hyperlipidemia type: unspecified Qualified Code(s): E78.5 - Hyperlipidemia , unspecified Is this a current diagnosis for this admission?: Yes (5) Hypothyroidism Qualifiers: Hypothyroidism type: unspecified Qualified Code(s): E03.9 - Hypothyroidism , unspecified Is this a current diagnosis for this admission?: Yes (6) Obesity (BMI 30-39.9) Is this a current diagnosis for this admission?: Yes - Notes Notes: Atrial flutter with RVR: Patient noted to have typical fine flutter. 2D echo results, CTA results of the chest are discussed. EKGs were reviewed by Dr. Anthony Bradshaw who feel that patient would be a good candidate for ablation. Patient demographic information given to him. He will arrange for transfer. Discussed with hospitalist. Hypertension: Reasonably well controlled. Blood pressure goal in this patient is 135/85 or less. This was discussed with the patient. Currently blood pressure under reasonable control. Better medication for this patient are JANES inhibitor/ARB/beta reece etc. discussed side effects of uncontrolled hypertension and also severe hypotension. Sleep disorder breathing: Based on patient's symptoms, oropharyngeal exam, body habitus, comorbid diagnosis etc., there is high probability of underlying sleep apnea syndrome. Evaluation is recommended for sleep apnea as treatment of this condition if found is likely to benefit patient and reduce patient's future cardiovascular risk. Hyperlipidemia: LDL goal is less than 70. Recommend statin therapy at least intermediate or high dose, of high potency status. Periodic lipid panel and liver panel is indicated. Patient to report any significant muscle discomfort or other side effects. Hypothyroidism : Continue with replacement therapy. Obesity: Discussed adverse effect of overweight/obesity on cardiovascular event rate, sleep apnea, diabetes and hypertension et cetera. Discussed a direct association of obesity hypertension and sleep apnea with sleep apnea atrial flutter fibrillation. - Time Time with patient: Greater than 35 minutes - CODE STATUS was discussed, patient remains full code. Surrogate decision-maker unchanged. Multiple medical problems were addressed. More than 50% of the time spent coordinating care, discussing management plans with involved caregivers. Management plans discussed with involved personnels. Medical decision making was of moderate to high complexity, patient's has multiple comorbidities. Approximately 40 minutes spent discussing pros and cons of treatment of atrial flutter and in arranging transfer to tertiary care center for ablation, need for anticoagulation for at least a month were discussed. Medications reviewed and adjusted accordingly: Yes
[2017-01-08] MEDS ORDERED: PAROXETINE HCL 20 MG TABLET PO SCH (10:00)
[2017-01-08] MEDS ORDERED: LEVOTHYROXINE SODIUM 0.112 MG TABLET PO SCH (10:00)
[2017-01-08] MEDS: METOPROLOL TARTRATE 50 MG TABLET PO SCH (10:21)
[2017-01-08] MEDS: RANOLAZINE 500 MG TAB.SR.12H PO SCH ×2 (10:23)
[2017-01-08] MEDS ORDERED: ACETAMINOPHEN 325 MG TABLET PO PRN (10:30)
--- NOTE | 2017-01-08 10:34 | PDOC DISCHARGE SUMMARY ---
General - Admit/Disc Date/PCP Admission Date/Primary Care Provider: 01/06/17 15:40 REMINGTON ENG PA-C Discharge Date: 01/08/17 - Discharge Diagnosis (1) Atrial flutter with rapid ventricular response Is this a current diagnosis for this admission?: Yes Summary: Pt currently on metoprolol and Multaq. (2) Hypothyroidism Is this a current diagnosis for this admission?: Yes Summary: Continue Synthroid. (3) Acute renal injury Is this a current diagnosis for this admission?: Yes Summary: Secondary to Contrast: Pt placed on IVF. Pt had CTA ordered by Cardiology. D- dimer was neg. (4) Hyperlipidemia Is this a current diagnosis for this admission?: Yes Summary: Statin (5) Obesity (BMI 30-39.9) Is this a current diagnosis for this admission?: Yes Summary: Encourage dietary changes (6) DVT prophylaxis Is this a current diagnosis for this admission?: Yes Summary: Lovenox weight based. - Additional Information Resuscitation Status: Full Code Discharge Diet: Cardiac Discharge Activity: Activity As Tolerated Home Medications: Cyclobenzaprine HCl [Flexeril 10 mg Tablet] 10 mg PO QHS 01/06/17 Levothyroxine Sodium [Synthroid 0.112 mg Tablet] 112 mcg PO DAILY 01/06/17 Omeprazole 40 mg PO ACBRKFST 01/06/17 Paroxetine HCl [Paxil] 40 mg PO DAILY 01/06/17 Simvastatin [Zocor 20 mg Tablet] 20 mg PO QHS 01/06/17 Tamsulosin HCl [Flomax 0.4 mg Cap.sr] 0.4 mg PO QHS 01/06/17 Dronedarone Hydrochloride [Multaq 400 mg Tablet] 400 mg PO Q12 tablet 01/08/17 Enoxaparin Sodium [Lovenox Inj 120 mg/0.8 ml Disp.syrin] 120 mg SUBCUT Q12 disp.syrin 01/08/17 Lansoprazole [Prevacid 15 mg Odt Tablet] 15 mg PO Q6AM tab.rap.dr 01/08/17 Metoprolol Tartrate [Lopressor 50 mg Tablet] 50 mg PO Q12 tablet 01/08/17 Paroxetine HCl [Paxil 20 mg Tablet] 40 mg PO DAILY tablet 01/08/17 Ranolazine [Ranexa 500 mg Tab.sr] 500 mg PO Q12 tab.sr.12h 01/08/17 History of Present Illness History of Present Illness: WENDY HOPKINS is a 51 year old male presents with complaint of heart palpitation for the last 8 weeks. Pt states that when he exerts himself he feels his heart start to beat fast. Pt states that he has not had any chest pain. Pt states that he has never had this problem before. Hospital Course Hospital Course: Patient is a 51-year-old male who presents to our facility with complaint of palpitations. Patient was found to be in a flutter with RVR. Patient was placed on p.o. metoprolol and Multaq was added. Patient was seen by cardiology who recommended that patient be transferred to carrier clinic for further evaluation. Patient did not convert to normal sinus rhythm while here at our facility remained in a flutter but rate controlled. Patient's CTA of chest demonstrate no evidence of PE. Patient's TSH was within normal range. Physical Exam Vital Signs: Temp Pulse Resp BP Pulse Ox 97.6 F 53 L 20 99/67 L 98 01/08/17 07:44 01/08/17 07:44 01/08/17 07:44 01/08/17 07:44 01/08/17 07:44 Intake & Output 01/07/17 01/08/17 01/09/17 06:59 06:59 06:59 Intake Total 372 980 Balance 372 980 Weight 118 kg 116.8 kg General appearance: PRESENT: no acute distress, well-developed, well-nourished Head exam: PRESENT: atraumatic, normocephalic Eye exam: PRESENT: conjunctiva pink, EOMI. ABSENT: scleral icterus Ear exam: PRESENT: normal external ear exam Mouth exam: PRESENT: moist, tongue midline Neck exam: ABSENT: carotid bruit, JVD, lymphadenopathy, thyromegaly Respiratory exam: PRESENT: clear to auscultation herminio. ABSENT: rales, rhonchi, wheezes Cardiovascular exam: PRESENT: irregular rhythm Pulses: PRESENT: normal dorsalis pedis pul Vascular exam: PRESENT: normal capillary refill GI/Abdominal exam: PRESENT: normal bowel sounds, soft. ABSENT: distended, guarding, mass, organolmegaly, rebound, tenderness Rectal exam: PRESENT: deferred Extremities exam: PRESENT: full ROM. ABSENT: calf tenderness, clubbing, pedal edema Neurological exam: PRESENT: alert, awake, oriented to person, oriented to place , oriented to time, oriented to situation, CN II-XII grossly intact. ABSENT: motor sensory deficit Psychiatric exam: PRESENT: appropriate affect, normal mood. ABSENT: homicidal ideation, suicidal ideation Skin exam: PRESENT: dry, intact, warm. ABSENT: cyanosis, rash Results Laboratory Results: 01/07/17 07:38 01/08/17 04:03 01/08/17 04:03 Sodium 141.5 Potassium 4.2 Chloride 105 Carbon Dioxide 24 Anion Gap 13 BUN 22 H Creatinine 1.31 H Est GFR ( Amer) > 60 Est GFR (Non-Af Amer) 58 L Glucose 93 Calcium 9.7 01/06/17 01/06/17 01/07/17 19:50 19:50 01:30 Creatine Kinase 229 H 215 H Troponin I < 0.012 01/07/17 01/07/17 01/07/17 01:30 07:38 07:38 Creatine Kinase 217 H Troponin I < 0.012 < 0.012 Impressions: Chest X-Ray 01/06/17 13:08 IMPRESSION: NO ACUTE RADIOGRAPHIC FINDING IN THE CHEST. Chest/Abdomen CTA 01/07/17 19:44 IMPRESSION: NORMAL CTA OF THE CHEST. NO PULMONARY EMBOLI.
[2017-01-08 12:03] VITALS: BP 94/79
[2017-01-08] MEDS ORDERED: RANOLAZINE 500 MG TAB.SR.12H PO SCH (22:00)
[2017-01-09] MEDS ORDERED: LEVOTHYROXINE SODIUM 0.112 MG TABLET PO SCH (06:00)
[2017-01-09] MEDS ORDERED: LANSOPRAZOLE 15 MG TAB.RAP.DR PO SCH (06:00)
== END 2017-01-08 12:15 | disposition short-term general hospital (02) | DRG 309 ==
LOC: ER 12:14 → UNDOADMOB 14:52 → EH 14:52 → OBSVTOIN 15:40 → 3N 16:41
PROVIDERS: ADMIT Emergency Medicine; ATTEND Emergency Medicine
DX: I48.3 Typical atrial flutter (principal); N17.9 Acute kidney failure, unspecified; E03.9 Hypothyroidism, unspecified; I10 Essential (primary) hypertension; I25.10 Atherosclerotic heart disease of native coronary artery without angina pectoris; E78.5 Hyperlipidemia, unspecified; T50.8X5A Adverse effect of diagnostic agents, initial encounter; E66.9 Obesity, unspecified; G47.30 Sleep apnea, unspecified; M19.90 Unspecified osteoarthritis, unspecified site; Y92.238 Other place in hospital as the place of occurrence of the external cause; Z68.34 Body mass index [BMI] 34.0-34.9, adult; Z87.891 Personal history of nicotine dependence
CPT/HCPCS: 36415; 71010; 71275; 80048; 80053; 80061; 82550; 82553; 83036; 83735; 84439; 84443; 84484; 85025; 85027; 85379; 85610; 93005; 93010; 93306; 96374; 99285; J1650; J3490; J7030

== ENCOUNTER → 2017-10-30 | Outpatient (CLI) | payer OTHER ==
--- NOTE | 2017-10-30 09:41 | RADIOLOGY REPORT (SQ) ---
EXAM DESCRIPTION: CHEST 2 VIEWS COMPLETED DATE/TIME: 10/30/2017 9:12 am REASON FOR STUDY: DYSPNEA ON EXERTION (R06.09) COMPARISON: November 2014 EXAM PARAMETERS: NUMBER OF VIEWS: two views TECHNIQUE: Digital Frontal and Lateral radiographic views of the chest acquired. RADIATION DOSE: NA LIMITATIONS: none FINDINGS: LUNGS AND PLEURA: No opacities, masses or pneumothorax. No pleural effusion. MEDIASTINUM AND HILAR STRUCTURES: No masses or contour abnormalities. HEART AND VASCULAR STRUCTURES: Heart normal size. No evidence for failure. BONES: No acute findings. HARDWARE: None in the chest. OTHER: Orthopedic hardware is again identified at the cervicothoracic junction. IMPRESSION: NO ACUTE RADIOGRAPHIC FINDING IN THE CHEST. TECHNICAL DOCUMENTATION: JOB ID: [id number] [employer] All Rights Reserved Reading location - IP/workstation name: [email or web address]
== END ==
LOC: RAD 08:53
PROVIDERS: ATTEND Physician Assistant
DX: R06.09 Other forms of dyspnea (principal)
CPT/HCPCS: 71046

== ENCOUNTER 2018-08-02 07:36 | Day surgery (SDC) | payer OTHER ==
[~2018-08-02 07:36] MED LIST changes: -CEFAZOLIN 2 GM/D5W RTU 2 GM/50 ML RTUPB IV PRN; -LACTATED RINGERS 1000 ML IV PRN; -LIDOCAINE 0.5% INJ-PF (5 MG/ML) 50 ML SDV SUBCUT PRN; +PROPOFOL INJ 200 MG/20 ML VIAL IV ONE
[2018-08-02 09:48] VITALS: BP 118/81
--- NOTE | 2018-08-02 13:18 | Operative Report ---
Operative Report DATE OF SURGERY: 08/02/18 Operative Report: The risks, benefits and alternatives of the procedure including the risk of bleeding, perforation requiring surgery have been explained to the patient in detail and informed consent has been obtained. Patient is placed in a left, lateral decubital position. Timeout was called. Propofol medication is administered. A rectal examination is performed which did not reveal any masses, tears or fissures. An Olympus videoscope is introduced into the patient's rectum. The scope was then carefully advanced all the way to the cecum. The cecum was identified by the usual anatomical landmarks including the ileocecal valve as well as the appendiceal office. Photodocumentation is obtained. The scope was then sequentially pulled back via the rest segments of the colon including the ascending colon, hepatic flexure, transverse colon, splenic flexure, descending colon and finally into the rectosigmoid portions of the colon. Retroflexion maneuver was performed. PREOPERATIVE DIAGNOSIS: Colorectal cancer screening POSTOPERATIVE DIAGNOSIS: Hepatic flexure polyp that was removed via biopsy forceps. Internal hemorrhoids OPERATION: Colonoscopy with biopsy SURGEON: DARNELL COLLIER ANESTHESIA: LMAC TISSUE REMOVED OR ALTERED: As noted above. COMPLICATIONS: None. ESTIMATED BLOOD LOSS: None. INTRAOPERATIVE FINDINGS: As noted above. PROCEDURE: Patient tolerated procedure well. No immediate postprocedure complications are noted. Patient discharged in good condition. Discharge date 08/02/2018. Discharge diet: Regular. Discharge activity: Regular. 2-3-week follow-up to discuss findings. Patient is instructed to call the office or proceed to the emergency room should there be any further proximal questions. Wait on the pathology. 5-year surveillance colonoscopy.
== END 2018-08-02 09:23 | disposition home or self-care (01) ==
LOC: END 07:36
PROVIDERS: ATTEND Internal Medicine Gastroenterology
DX: Z12.11 Encounter for screening for malignant neoplasm of colon (principal); D12.6 Benign neoplasm of colon, unspecified; K64.8 Other hemorrhoids; I10 Essential (primary) hypertension; E78.2 Mixed hyperlipidemia; K21.9 Gastro-esophageal reflux disease without esophagitis; I49.9 Cardiac arrhythmia, unspecified; R06.02 Shortness of breath; Z87.891 Personal history of nicotine dependence; Z79.899 Other long term (current) drug therapy; Z79.01 Long term (current) use of anticoagulants; Z79.84 Long term (current) use of oral hypoglycemic drugs; Z88.8 Allergy status to other drugs, medicaments and biological substances
CPT/HCPCS: 45380; 82962; 88305 ×2; J2704; 811

== ENCOUNTER 2019-04-23 14:03 | Emergency (ER) | payer OTHER ==
--- NOTE | 2019-04-23 15:40 | ER Document Report ---
ED Medical Screen (RME) - General Chief Complaint: Flu Symptoms Stated Complaint: COUGH Time Seen by Provider: 04/23/19 15:34 Primary Care Provider: REMINGTON ENG PA-C [Primary Care Provider] - Follow up as needed Notes: Patient is a 53-year-old male who presents to the emergency department with a chief complaint of a cough, body aches, chills. Patient has been coughing up black sputum. He has had his symptoms for the past week. Patient has a history of pneumonia. He is up-to-date on his flu vaccine. Exam: Coarse breath sounds noted to right lower lobe. I have greeted and performed a rapid initial assessment of this patient. A comprehensive ED assessment and evaluation of the patient, analysis of test results and completion of medical decision making process will be conducted by an additional ED providers. TRAVEL OUTSIDE OF THE [place] IN LAST 30 DAYS: No - Related Data Allergies/Adverse Reactions: lisinopril Adverse Reaction (Verified 08/02/18 07:38) Tachycardia Home Medications: paxil, metformin, atorvastatin, zyrtec, levothyroxine, metoprolol Past Medical History - Social History Chew tobacco use (# tins/day): No Frequency of alcohol use: None Drug Abuse: None - Past Medical History Cardiac Medical History: Reports: Hx Coronary Artery Disease, Hx Hypertension - no meds Denies: Hx Heart Attack Pulmonary Medical History: Reports: Hx Pneumonia - aspiration 2001 post shoulder sx Denies: Hx Asthma, Hx Bronchitis, Hx COPD Neurological Medical History: Denies: Hx Cerebrovascular Accident, Hx Seizures Renal/ Medical History: Denies: Hx Peritoneal Dialysis GI Medical History: Denies: Hx Hepatitis, Hx Hiatal Hernia, Hx Ulcer Musculoskeltal Medical History: Reports Hx Arthritis Infectious Medical History: Denies: Hx Hepatitis Past Surgical History: Reports: Hx Cholecystectomy, Other - Left knee surgery Neck Surgery Rotator Cuff Surgery. Denies: Hx Open Heart Surgery, Hx Pacemaker - Immunizations Hx Diphtheria, Pertussis, Tetanus Vaccination: Yes Physical Exam - Vital signs Vitals: Temp Pulse Resp BP Pulse Ox 98.3 F 66 14 120/78 100 04/23/19 14:09 04/23/19 14:09 04/23/19 14:09 04/23/19 14:04/23/19 14:09 Course - Vital Signs Vital signs: Temp Pulse Resp BP Pulse Ox 98.3 F 66 14 120/78 100 04/23/19 14:09 04/23/19 14:09 04/23/19 14:09 04/23/19 14:09 04/23/19 14:09 Doctor's Discharge - Discharge Referrals: REMINGTON ENG PA-C [Primary Care Provider] - Follow up as needed
[2019-04-23 16:29] LABS: ABSOLUTE BASOPHILS # (AUTO) 0.1 10^3/uL (0.0-0.2); ABSOLUTE EOSINOPHILS # (AUTO) 0.3 10^3/uL (0.0-0.6); ABSOLUTE LYMPHOCYTES (AUTO) 2.2 10^3/uL (0.5-4.7); ABSOLUTE MONOCYTES (AUTO) 0.9 10^3/uL (0.1-1.4); ABSOLUTE NEUT (AUTO) 5.2 10^3/uL (1.7-8.2); BASOPHILS % (AUTO) 1.3 % (0-2); EOSINOPHILS % (AUTO) 3.1 % (0-6); HEMATOCRIT 41.5 % (37.9-51.0); HEMOGLOBIN 14.5 g/dL (13.5-17.0); LYMPHOCYTES % (AUTO) 25.1 % (13-45); MEAN CORPUSCULAR HEMOGLOBIN 30.1 pg (27.0-33.4); MEAN CORPUSCULAR HGB CONC 34.9 g/dL (32.0-36.0); MEAN CORPUSCULAR VOLUME 86 fl (80-97); MONOCYTES % (AUTO) 10.8 % (3-13); PLATELET COUNT 241 10^3/uL (150-450); RED BLOOD COUNT 4.81 10^6/uL (4.35-5.55); RED CELL DISTRIBUTION WIDTH 13.2 % (11.5-14.0); SEGMENTED NEUTROPHILS % (AUTO) 59.7 % (42-78); TOTAL CELLS COUNTED % (AUTO) 100 %; WHITE BLOOD COUNT 8.7 10^3/uL (4.0-10.5)
--- NOTE | 2019-04-23 16:46 | RADIOLOGY REPORT (SQ) ---
EXAM DESCRIPTION: CHEST 2 VIEWS COMPLETED DATE/TIME: 04/23/2019 4:02 pm REASON FOR STUDY: coughing up black phlegm COMPARISON: 10/30/2017 EXAM PARAMETERS: NUMBER OF VIEWS: two views TECHNIQUE: Digital Frontal and Lateral radiographic views of the chest acquired. RADIATION DOSE: NA LIMITATIONS: none FINDINGS: LUNGS AND PLEURA: No opacities, masses or pneumothorax. No pleural effusion. MEDIASTINUM AND HILAR STRUCTURES: No masses or contour abnormalities. HEART AND VASCULAR STRUCTURES: Cardiomegaly. BONES: Disc degenerative disease of the thoracic spine. HARDWARE: None in the chest. OTHER: Implantable loop recorder. IMPRESSION: Cardiomegaly without acute abnormality of the lungs. No focal airspace opacity. TECHNICAL DOCUMENTATION: JOB ID: [id number] [employer]- All Rights Reserved Reading location - IP/workstation name: [email or web address]
[2019-04-23 16:52] LABS: ALBUMIN 4.7 g/dL (3.5-5.0); ALKALINE PHOSPHATASE 83 U/L (38-126); ANION GAP 11 (5-19); ASPARTATE AMINO TRANSFERASE 25 U/L (17-59); BILIRUBIN,DIRECT 0.2 mg/dL (0.0-0.4); BILIRUBIN,TOTAL 0.6 mg/dL (0.2-1.3); BLOOD UREA NITROGEN 18 mg/dL (7-20); CALCIUM 9.8 mg/dL (8.4-10.2); CARBON DIOXIDE 25 mmol/L (22-30); CHLORIDE 105 mmol/L (98-107); GLUCOSE 83 mg/dL (75-110); POTASSIUM 4.6 mmol/L (3.6-5.0); TOTAL PROTEIN 8.2 g/dL (6.3-8.2)
[2019-04-23 17:00] LABS: A TYPE INFLUENZA AG POSITIVE (NEGATIVE); B INFLUENZA AG NEGATIVE (NEGATIVE)
[2019-04-23] MEDS ORDERED: BENZONATATE 100 MG CAPSULE PO ONE (18:53)
[2019-04-23] MEDS ORDERED: ACETAMINOPHEN 325 MG TABLET PO ONE (18:53)
--- NOTE | 2019-04-23 18:54 | ER Document Report ---
HPI - HPI Patient complains to provider of: Cough, body aches Time Seen by Provider: 04/23/19 15:34 Onset: Other - 3 weeks Onset/Duration: Worse Quality of pain: Achy Pain Level: 4 Context: Patient presents with occasionally productive cough, body aches and sore throat for the past 3 weeks that worsened over the past week. Patient states that early in the course of his symptoms he did have a fever although he has not had any recently. Patient denies any nausea vomiting or diarrhea. Associated Symptoms: Chills, Productive cough, Rhinnorhea, Sore throat. denies: Chest pain, Fever, Headache, Nausea, Vomiting, Shortness of breath Exacerbated by: Denies Relieved by: Denies Similar symptoms previously: Yes Recently seen / treated by doctor: No - ROS ROS below otherwise negative: Yes Systems Reviewed and Negative: Yes All other systems reviewed and negative - CONSTITUTIONAL Constitutional: REPORTS: Chills - EENT EENT: REPORTS: Sore Throat, Nasal Drainage-Clear, Congestion - NEURO Neurology: DENIES: Headache - CARDIOVASCULAR Cardiovascular: DENIES: Chest pain - RESPIRATORY Respiratory: REPORTS: Coughing. DENIES: Trouble Breathing - GASTROINTESTINAL Gastrointestinal: DENIES: Nausea, Patient vomiting, Diarrhea - DERM Skin Color: Normal Skin Problems: None Past Medical History - General Information source: Patient - Social History Smoking Status: Former Smoker Chew tobacco use (# tins/day): No Frequency of alcohol use: None Drug Abuse: None Occupation: [employer] Lives with: Spouse/Significant other Family History: Hypertension, Other - Congestive heart failure Patient has suicidal ideation: No Patient has homicidal ideation: No - Past Medical History Cardiac Medical History: Reports: Hx Coronary Artery Disease, Hx Hypertension - no meds Pulmonary Medical History: Reports: Hx Pneumonia - aspiration 2001 post shoulder sx Renal/ Medical History: Denies: Hx Peritoneal Dialysis Musculoskeletal Medical History: Reports Hx Arthritis Infectious Medical History: Denies: Hx Hepatitis Past Surgical History: Reports: Hx Cholecystectomy, Other - Left knee surgery Neck Surgery Rotator Cuff Surgery - Immunizations Hx Diphtheria, Pertussis, Tetanus Vaccination: Yes Vertical Provider Document - CONSTITUTIONAL Agree With Documented VS: Yes Exam Limitations: No Limitations General Appearance: WD/WN, No Apparent Distress - INFECTION CONTROL TRAVEL OUTSIDE OF THE [place] IN LAST 30 DAYS: No - HEENT HEENT: Atraumatic, Normocephalic, Pharyngeal Tenderness, Pharyngeal Erythema. negative: Pharyngeal Exudate - NECK Neck: Normal Inspection, Supple. negative: Lymphadenopathy-Left, Lymphadenopathy-Right - RESPIRATORY Respiratory: Breath Sounds Normal, No Respiratory Distress, Chest Non-Tender. negative: Rhonchi, Wheezing - CARDIOVASCULAR Cardiovascular: Regular Rate, Regular Rhythm, No Murmur - GI/ABDOMEN Gastrointestinal: Abdomen Soft, Abdomen Non-Tender - BACK Back: Normal Inspection. negative: CVA Tenderness-Right, CVA Tenderness-Left - MUSCULOSKELETAL/EXTREMETIES Musculoskeletal/Extremeties: DENILSON FROM - NEURO Level of Consciousness: Awake, Alert, Appropriate Motor/Sensory: No Motor Deficit, No Sensory Deficit - DERM Integumentary: Warm, Dry, No Rash Course - Re-evaluation Re-evalutation: 04/23/19 20:26 Patient without any respiratory distress. Vital signs stable. No concern for pneumonia or pneumothorax. Patient with negative rapid strep test. Patient does have influenza type A. Patient has had symptoms for over a week and is o utside the recommended window for starting antiviral treatment at this time. Patient otherwise nontoxic in appearance. Will treat symptomatically and encourage outpatient follow-up with his primary doctor for recheck. - Vital Signs Vital signs: Temp Pulse Resp BP Pulse Ox 98.3 F 66 14 120/78 100 04/23/19 14:09 04/23/19 14:09 04/23/19 14:09 04/23/19 14:09 04/23/19 14:09 - Laboratory Result Diagrams: 04/23/19 16:10 04/23/19 16:10 Laboratory results interpreted by me: 04/23/19 20:26 Labs- Entire Visit 04/23/19 04/23/19 04/23/19 16:10 16:10 16:10 WBC 8.7 RBC 4.81 Hgb 14.5 Hct 41.5 MCV 86 MCH 30.1 MCHC 34.9 RDW 13.2 Plt Count 241 Lymph % (Auto) 25.1 Kane % (Auto) 10.8 Eos % (Auto) 3.1 Baso % (Auto) 1.3 Absolute Neuts (auto) 5.2 Absolute Lymphs (auto) 2.2 Absolute Monos (auto) 0.9 Absolute Eos (auto) 0.3 Absolute Basos (auto) 0.1 Seg Neutrophils % 59.7 Sodium 141.1 Potassium 4.6 Chloride 105 Carbon Dioxide 25 Anion Gap 11 BUN 18 Creatinine 0.89 Est GFR ( Amer) > 60 Est GFR (MDRD) Non-Af > 60 Glucose 83 Calcium 9.8 Total Bilirubin 0.6 Direct Bilirubin 0.2 Neonat Total Bilirubin Not Reportable Neonat Direct Bilirubin Not Reportable Neonat Indirect Bili Not Reportable AST 25 ALT 22 Alkaline Phosphatase 83 Total Protein 8.2 Albumin 4.7 Influenza A (Rapid) POSITIVE Influenza B (Rapid) NEGATIVE Group A Strep Rapid 04/23/19 19:30 WBC RBC Hgb Hct MCV MCH MCHC RDW Plt Count Lymph % (Auto) Kane % (Auto) Eos % (Auto) Baso % (Auto) Absolute Neuts (auto) Absolute Lymphs (auto) Absolute Monos (auto) Absolute Eos (auto) Absolute Basos (auto) Seg Neutrophils % Sodium Potassium Chloride Carbon Dioxide Anion Gap BUN Creatinine Est GFR ( Amer) Est GFR (MDRD) Non-Af Glucose Calcium Total Bilirubin Direct Bilirubin Neonat Total Bilirubin Neonat Direct Bilirubin Neonat Indirect Bili AST ALT Alkaline Phosphatase Total Protein Albumin Influenza A (Rapid) Influenza B (Rapid) Group A Strep Rapid NEGATIVE - Diagnostic Test Radiology reviewed: Reports reviewed Discharge - Discharge Clinical Impression: Influenza A, Sore throat Condition: Stable Disposition: HOME, SELF-CARE Instructions: Acetaminophen, Influenza ([facility]), Inhaled Bronchodilators ([facility]) Additional Instructions: Return immediately for any new or worsening symptoms Followup with your primary care provider, call tomorrow to make a followup appointment Take Tylenol [id number] as needed for throat pain or fever You may take [id number] Coricidin HBP to help with congestion symptoms Prescriptions: Benzonatate [Tessalon Perle 100 mg Capsule] 100 mg PO Q8HP PRN #20 cap PRN Reason: Inhaler,Assist Device,Accesory [Optichamber] 1 each MC Q4 PRN #1 each PRN Reason: Albuterol Sulfate [Proair Hfa Inhalation Aerosol 8.5 gm Mdi] 2 puff IH Q4 PRN #1 mdi PRN Reason: Forms: Return to Work Referrals: REMINGTON ENG PA-C [Primary Care Provider] - Follow up as needed
[2019-04-23 20:49] VITALS: BP 115/85
== END 2019-04-23 20:49 | disposition home or self-care (01) ==
LOC: ER 14:03
DX: J10.1 Influenza due to other identified influenza virus with other respiratory manifestations (principal); R05 Cough; J34.89 Other specified disorders of nose and nasal sinuses; R68.83 Chills (without fever); I25.10 Atherosclerotic heart disease of native coronary artery without angina pectoris; I10 Essential (primary) hypertension; Z87.891 Personal history of nicotine dependence; Z87.01 Personal history of pneumonia (recurrent)
CPT/HCPCS: 36415; 71046; 80053; 85025; 87070; 87804; 87880; 99283

== ENCOUNTER → 2020-05-14 | Outpatient (CLI) | payer OTHER ==
--- NOTE | 2020-05-14 16:14 | RADIOLOGY REPORT (SQ) ---
EXAM DESCRIPTION: CAROTID DOPPLER IMAGES COMPLETED DATE/TIME: 05/14/2020 2:00 pm REASON FOR STUDY: DISORDERS OF EAR H93.8X3 OTHER SPECIFIED DISORDERS OF EAR, BILATERAL COMPARISON: None. TECHNIQUE: Grayscale ultrasound, Doppler velocity and spectra, and color Doppler images acquired of the extra-cranial carotid and vertebral arteries. Images stored on PACS. LIMITATIONS: None. FINDINGS: RIGHT CAROTID CCA Velocities: Within normal limits. ICA Velocities Peak systolic 70 cm/s. End diastolic 36 cm/s. Proximal ICA/CCA peak systolic ratio 1.13. Minimal intimal thickening. LEFT CAROTID CCA Velocities: Within normal limits. ICA Velocities Peak systolic 79 cm/s. End diastolic 39 cm/s. Proximal ICA/CCA peak systolic ratio 1.3. Minimal intimal thickening. VERTEBRAL ARTERIES: Antegrade flow. Normal waveforms. SUBCLAVIAN ARTERIES: No finding. OTHER: No other significant finding. IMPRESSION: NO HEMODYNAMICALLY SIGNIFICANT STENOSIS. COMMENT: Quality ID #[id number]: Velocity criteria are extrapolated from the diameter data as defined by t he Society of Radiologists in Ultrasound Consensus Conference. Radiology 2003: 229; 340-346. TECHNICAL DOCUMENTATION: JOB ID: [id number] [employer]- All Rights Reserved Reading location - IP/workstation name: [email or web address]
== END ==
LOC: SP 12:39
PROVIDERS: ATTEND Physician Assistant
DX: H93.8X3 Other specified disorders of ear, bilateral (principal)
CPT/HCPCS: 93880